=== PATIENT | male | born 2000 | race Two or more races ===

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

== ENCOUNTER 2018-09-17 17:04 | Emergency (ER) | payer SELFPAY ==
[~2018-09-17] VITALS: Ht 188 cm; Wt 131.5 kg
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
[2018-09-17 18:30] VITALS: BP 137/82
[2018-09-17] MEDS ORDERED: NAPR500T8 PO (18:36)
[2018-09-17] MEDS ORDERED: CYCL10TA2 PO (18:36)
== END 2018-09-17 19:10 | disposition home or self-care (01) ==
LOC: ER 17:04
DX: S00.03XA Contusion of scalp, initial encounter (principal); Z91.018 Allergy to other foods; V43.52XA Car driver injured in collision with other type car in traffic accident, initial encounter; Y93.89 Activity, other specified; Y92.410 Unspecified street and highway as the place of occurrence of the external cause; Y99.8 Other external cause status
CPT/HCPCS: 70450; 72125; 99284